=== PATIENT | female | born 1975 | race Caucasian/White ===

== ENCOUNTER → 2017-11-27 | Outpatient (CLI) | payer BC | LOC: BMCLAB 08:52 | PROVIDERS: ATTEND Family Medicine | DX: J40 Bronchitis, not specified as acute or chronic (principal); Z80.1 Family history of malignant neoplasm of trachea, bronchus and lung ==

== ENCOUNTER 2018-08-18 10:14 | Emergency (ER) | payer BC, OTHER ==
[2018-08-18] MEDS ORDERED: LIDOCAINE 2% VISCOUS 15 ML UDCUP PO ONE (10:36)
[2018-08-18] MEDS ORDERED: HYOSCYAMINE SULFATE 0.125 MG TAB PO ONE (10:36)
[2018-08-18] MEDS ORDERED: MAG HYDROX/AL HYDROX/SIMETH 30 ML UDCUP PO ONE (10:36)
--- NOTE | 2018-08-18 10:36 | EDPHY ---
H & P Stated Complaint: poss allergic reaction--thrt tight -ate potential allergens last night n vo Time Seen by Provider: 08/18/18 10:28 HPI/ROS: CHIEF COMPLAINT: Food bolus impaction HISTORY OF PRESENT ILLNESS: 42-year-old female with no prior history of anaphylaxis, does know multiple food reaction, not described as true allergic reactions however, states that last evening she was eating scallops for dinner and has noticed ever since that she has had difficulty swallowing. She is able swallow some of her secretions but will notes that she has been retching throughout the evening as well. Patient concerned this may represent a food allergy. PRIMARY CARE PROVIDER: REVIEW OF SYSTEMS: 10 systems reviewed and negative with the exception of the elements mentioned in the history of present illness PAST MEDICAL & SURGICAL HISTORY: No pertinent medical or surgical history SOCIAL HISTORY: Nonsmoker PHYSICAL EXAM (Prior to examination, patient consented to physical exam, hands were washed and my usual and customary physical exam procedures followed) 1) GENERAL: Well-developed, well-nourished, alert and oriented. Appears uncomfortable. 2) HEAD: Normocephalic, atraumatic 3) HEENT: Pupils equal, round, reactive to light bilaterally. Sclera anicteric. Nasopharynx, oropharynx, clear, no lesions. Moist Mucous membranes. No posterior erythema. No tonsillar enlargement or exudate. No trismus. She is unable swallow her secretions. 4) NECK: Full range of motion, no meningeal signs. No crepitus. Trachea midline. 5) LUNGS: Clear auscultation bilaterally, no wheezes, no rhonchi, no retractions. 6) HEART: Regular rate and rhythm, no murmur, no heave, no gallop. 7) ABDOMEN: No guarding, no rebound, no focal tenderness,, 8) MUSCULOSKELETAL: Moving all extremities, no focal areas of tenderness, no obvious trauma. No peripheral edema or discoloration. 9) BACK: No CVA tenderness, no midline vertebral tenderness, no fluctuance, no step-off, no obvious trauma, no visual or palpable abnormality. 10) SKIN: No rash, no petechiae. 11) Psychiatric: Patient is oriented X 3, there is no agitation. DIFFERENTIAL DIAGNOSIS: In no particular order i including but not limited to allergic reaction, esophageal food bolus, esophagitis, epiglottitis - Personal History LMP (Females 10-55): 8-14 Days Ago - Medical/Surgical History Hx Asthma: No Hx Chronic Respiratory Disease: No Hx Diabetes: No Hx Cardiac Disease: No Hx Renal Disease: No Hx Cirrhosis: No Hx Alcoholism: No Hx HIV/AIDS: No Hx Splenectomy or Spleen Trauma: No Other PMH: depression/anxiety - Social History Smoking Status: Never smoked Constitutional: Initial Vital Signs Temperature (C) 36.7 C 08/18/18 10:16 Heart Rate 91 08/18/18 10:16 Respiratory Rate 20 08/18/18 10:16 Blood Pressure 123/82 H 08/18/18 10:16 O2 Sat (%) 97 08/18/18 10:16 O2 Delivery Mode Room Air Allergies/Adverse Reactions: No Known Allergies Allergy (Unverified 08/18/18 10:16) Home Medications: Medication Instructions Recorded Citalopram 08/18/18 Medical Decision Making - Diagnostics Imaging Results: Imaging Impressions Soft Tissue Neck X-Ray 08/18/18 10:54 Impression: Normal soft tissue evaluation of the neck. Chest X-Ray 08/18/18 12:05 Impression: Clear lungs. No acute process. ED Course/Re-evaluation: 10:35 a.m.: Think that allergic reaction is less than likely this patient given the longevity of her symptoms another presenting signs symptoms which I do not think are consistent with acute allergic reaction or anaphylaxis. She is complaining of a globus and we discussed possible esophageal abrasion verses retained foreign body. Recommend GI cocktail initially to see if this provides some relief. She is agreeable with this. Care of patient under supervision of secondary supervising physician Dr Robbins with whom I discussed case. 10:34 a.m.: Patient unable to swallow any fluids 11:46 a.m.: Re-evaluation, patient given IV hydration, still unable to swallow secretions. Will consult Gastroenterology. 12:01 p.m.: Consultation with on-call GI doctor Alize Morrison who is currently at [facility] about perform an ERCP however will come to [facility] when he is done. 12:30 p.m.: Re-evaluation, sleeping 1:30 p.m.: Patient has been observed in the ER. At this time she attempted oral challenge and is able to tolerate oral intake. States that her food impaction has passed. Will attempt further fluid challenge 3:00 p.m.: Patient has drank multiple glasses of fluid and has had no complaints of dysphagia or sensation of food impaction. Plan will be discharge home. Will contact Dr. Alize Morrison to cancel his consultation. Will provide this follow-up information for patient follow up on outpatient basis. - Data Points Laboratory Results: Laboratory Results 08/18/18 11:00 08/18/18 11:00 08/18/18 08/18/18 08/18/18 11:00 11:00 11:00 WBC 8.24 10^3/uL 10^3/uL (3.80-9.50) RBC 4.93 10^6/uL 10^6/uL (4.18-5.33) Hgb 14.6 g/dL g/dL (12.6-16.3) Hct 42.6 % % (38.0-47.0) MCV 86.4 fL fL (81.5-99.8) MCH 29.6 pg pg (27.9-34.1) MCHC 34.3 g/dL g/dL (32.4-36.7) RDW 12.6 % % (11.5-15.2) Plt Count 240 10^3/uL 10^3/uL (150-400) MPV 8.5 fL L fL (8.7-11.7) Neut % (Auto) 61.4 % % (39.3-74.2) Lymph % (Auto) 20.8 % % (15.0-45.0) Cotton % (Auto) 8.3 % % (4.5-13.0) Eos % (Auto) 8.6 % H % (0.6-7.6) Baso % (Auto) 0.7 % % (0.3-1.7) Nucleat RBC Rel Count 0.0 % % (0.0-0.2) Absolute Neuts (auto) 5.06 10^3/uL 10^3/uL (1.70-6.50) Absolute Lymphs (auto) 1.71 10^3/uL 10^3/uL (1.00-3.00) Absolute Monos (auto) 0.68 10^3/uL 10^3/uL (0.30-0.80) Absolute Eos (auto) 0.71 10^3/uL H 10^3/uL (0.03-0.40) Absolute Basos (auto) 0.06 10^3/uL 10^3/uL (0.02-0.10) Absolute Nucleated RBC 0.00 10^3/uL 10^3/uL (0-0.01) Immature Gran % 0.2 % % (0.0-1.1) Immature Gran # 0.02 10^3/uL 10^3/uL (0.00-0.10) Sodium 137 mEq/L mEq/L (135-145) Potassium 4.1 mEq/L mEq/L (3.5-5.2) Chloride 108 mEq/L mEq/L (97-110) Carbon Dioxide 23 mEq/l mEq/l (22-31) Anion Gap 6 mEq/L mEq/L (6-14) BUN 13 mg/dL mg/dL (7-23) Creatinine 0.8 mg/dL mg/dL (0.6-1.0) Estimated GFR > 60 Glucose 93 mg/dL mg/dL (70-100) Calcium 9.2 mg/dL mg/dL (8.5-10.4) Beta HCG, Qual NEGATIVE Medications Given: Discontinued Medications Al Hydroxide/Mg Hydroxide (Maalox Susp) 30 ml PO ONCE ONE Stop: 08/18/18 10:37 Last Admin: 08/18/18 10:39 Dose: 30 ml Glucagon (Glucagon) 1 mg IVP EDNOW ONE Stop: 08/18/18 12:05 Last Admin: 08/18/18 12:11 Dose: 1 mg Hyoscyamine Sulfate (Levsin, Hyomax-Sl) 0.25 mg PO ONCE ONE Stop: 08/18/18 10:37 Last Admin: 08/18/18 10:39 Dose: 0.25 mg Lidocaine (Lidocaine 2% Viscous) 15 ml PO ONCE ONE Stop: 08/18/18 10:37 Last Admin: 08/18/18 10:39 Dose: 15 ml Departure - Departure Disposition: Home, Routine, Self-Care Clinical Impression: Esophageal foreign body Qualifiers: Encounter type: initial encounter Qualified Code(s): T18.108A - Unspecified foreign body in esophagus causing other injury, initial encounter Condition: Good Instructions: Esophageal Foreign Body (ED) Additional Instructions: Return to the ER if you develop chest pain, shortness of breath or any other symptoms that concern. Eat soft foods. Referrals: Alize Morrison MD [Medical Doctor] - 1-2 days without fail
[2018-08-18 11:09] LABS: PLATELET COUNT 240 10^3/uL (150-400)
[2018-08-18] MEDS ORDERED: GLUCAGON HCL 1 MG VIAL IVP ONE (12:04)
[2018-08-18 14:04] VITALS: BP 145/89
== END 2018-08-18 14:10 | disposition home or self-care (01) ==
DX: T18.108A Unspecified foreign body in esophagus causing other injury, initial encounter (principal); F41.8 Other specified anxiety disorders; Y92.9 Unspecified place or not applicable
CPT/HCPCS: 96374; J1610

== ENCOUNTER → 2018-11-06 | Outpatient (CLI) | payer OTHER | LOC: CIMAGING 13:51 | PROVIDERS: ATTEND Family Medicine | DX: Z12.31 Encounter for screening mammogram for malignant neoplasm of breast (principal); N92.0 Excessive and frequent menstruation with regular cycle; R93.89 Abnormal findings on diagnostic imaging of other specified body structures; N83.202 Unspecified ovarian cyst, left side | CPT/HCPCS: 76856-PO ==

== ENCOUNTER → 2018-11-25 | Outpatient (CLI) | payer OTHER | LOC: FIMAGING 14:28 | PROVIDERS: ATTEND Family Medicine | DX: R92.8 Other abnormal and inconclusive findings on diagnostic imaging of breast (principal) ==